=== PATIENT | male | born 1980 | race Caucasian/White ===

== ENCOUNTER 2025-01-08 08:20 | Inpatient (IN) | payer MEDICARE, OTHER ==
[2025-01-08] MEDS ORDERED: diphenhydrAMINE 50 MG/ML VIAL ONE (10:12)
[2025-01-08 10:57] LABS: #Basophils 0.12 10x3/uL (0.0-0.2); #Eosinophils Less than 0.03 10x3/uL (0.0-0.7); #Monocytes 0.86 10x3/uL (0.11-0.59); #Neutrophils 21.68 10x3/uL (1.40-6.50); %Basophils 0.5 % (0.0-1.0); %Eosinophils 0.0 % (0.0-10.0); %Lymphocytes 4.7 % (21.0-51.0); %Monocytes 3.6 % (0.0-10.0); %Neutrophils 90.7 % (42.0-75.0); Hematocrit 42.6 % (42.0-52.0); Hemoglobin 13.8 g/dL (14.0-18.0); Mean Corpuscular Hemoglobin 33.7 pg (27.0-31.0); Mean Corpuscular Volume 103.9 fL (78.0-98.0); Platelet Count 276 10x3/uL (130-400); Red Blood Cell (RBC) Count 4.10 mill/uL (4.70-6.10); White Blood Cell (WBC) Count 23.89 10x3/uL (4.8-10.8)
[2025-01-08] MEDS ORDERED: Iopamidol-370 76% 500 ML MDV (1 ML CHARGE) ONE (11:04)
[2025-01-08 11:31] LABS: ALT (SGPT) 24 U/L (Less than 45); AST (SGOT) 40 U/L (11-34); Albumin 4.3 g/dL (3.1-4.5); Alkaline Phosphatase 68 U/L (40-110); Anion Gap 25 mmol/L (10-20); BUN (Urea Nitrogen) 25 mg/dL (8.9-20.6); Bilirubin, Total 0.5 mg/dL (0.3-1.2); CK (CPK) 540 U/L (30-200); Calc. Creatinine Clearance 0 mL/min (70-130); Calcium 9.5 mg/dL (7.8-10.44); Carbon Dioxide 15 mmol/L (22-29); Chloride 102 mmol/L (98-107); Globulin 4.2 g/dL (2.4-3.5); Glucose 154 mg/dL (70-105); Lipase 26 U/L (8-78); Magnesium 1.9 mg/dL (1.6-2.6); Potassium 4.2 mmol/L (3.5-5.1); Sodium 138 mmol/L (136-145)
[2025-01-08] MEDS ORDERED: cefTRIAXone (ROCEPHIN) 2 GM VIAL ONE (12:14)
[2025-01-08 16:45] VITALS: BMI 26.1
[2025-01-08] MEDS ORDERED: Electrolyte Replacement Protocol 1 EACH FS SCH (17:11)
[2025-01-08] MEDS ORDERED: Ondansetron PF 4 MG/2 ML Vial IVP PRN (17:11)
[2025-01-08] MEDS ORDERED: Senokot S 8.6-50 MG TAB PO PRN (17:11)
[2025-01-08] MEDS ORDERED: Bisacodyl 10 MG SUPP PR PRN (17:11)
[2025-01-08] MEDS ORDERED: Glucagon 1 MG/ML KIT IM PRN (17:35)
[2025-01-08] MEDS ORDERED: Dextrose 50% Abboject 50 ML SYRINGE SLOW IVP PRN (17:35)
[2025-01-08] MEDS: Acetaminophen 325 MG TAB PO SCH (19:04)
[2025-01-08 21:06] LABS: ALT (SGPT) 25 U/L (Less than 45); AST (SGOT) 50 U/L (11-34); Albumin 3.7 g/dL (3.1-4.5); Alkaline Phosphatase 56 U/L (40-110); Anion Gap 14 mmol/L (10-20); BUN (Urea Nitrogen) 14 mg/dL (8.9-20.6); Bilirubin, Total 0.3 mg/dL (0.3-1.2); Calc. Creatinine Clearance 78 mL/min (70-130); Calcium 8.5 mg/dL (7.8-10.44); Carbon Dioxide 22 mmol/L (22-29); Chloride 107 mmol/L (98-107); Globulin 3.3 g/dL (2.4-3.5); Glucose 136 mg/dL (70-105); Magnesium 1.8 mg/dL (1.6-2.6); Potassium 3.7 mmol/L (3.5-5.1); Sodium 139 mmol/L (136-145)
[2025-01-09 05:52] LABS: #Basophils 0.07 10x3/uL (0.0-0.2); #Eosinophils Less than 0.03 10x3/uL (0.0-0.7); #Monocytes 1.07 10x3/uL (0.11-0.59); #Neutrophils 13.50 10x3/uL (1.40-6.50); %Basophils 0.4 % (0.0-1.0); %Eosinophils 0.1 % (0.0-10.0); %Lymphocytes 6.9 % (21.0-51.0); %Monocytes 6.8 % (0.0-10.0); %Neutrophils 85.4 % (42.0-75.0); Hematocrit 39.6 % (42.0-52.0); Hemoglobin 13.3 g/dL (14.0-18.0); Mean Corpuscular Hemoglobin 33.8 pg (27.0-31.0); Mean Corpuscular Volume 100.5 fL (78.0-98.0); Platelet Count 254 10x3/uL (130-400); Red Blood Cell (RBC) Count 3.94 mill/uL (4.70-6.10); White Blood Cell (WBC) Count 15.80 10x3/uL (4.8-10.8)
[2025-01-09 06:16] LABS: ALT (SGPT) 25 U/L (Less than 45); AST (SGOT) 48 U/L (11-34); Albumin 3.4 g/dL (3.1-4.5); Alkaline Phosphatase 54 U/L (40-110); Anion Gap 16 mmol/L (10-20); BUN (Urea Nitrogen) 12 mg/dL (8.9-20.6); Bilirubin, Total 0.4 mg/dL (0.3-1.2); Calc. Creatinine Clearance 92 mL/min (70-130); Calcium 8.3 mg/dL (7.8-10.44); Carbon Dioxide 22 mmol/L (22-29); Chloride 108 mmol/L (98-107); Globulin 3.4 g/dL (2.4-3.5); Glucose 121 mg/dL (70-105); Potassium 3.2 mmol/L (3.5-5.1); Sodium 143 mmol/L (136-145)
[2025-01-09 07:08] LABS: Bacteria/HPF None Seen HPF (None Seen); Glucose, Urine (Dipstick) Normal (Negative); Leukocyte Negative Leu/uL (Negative); Protein, Urine (Dipstick) Negative (Neg-Trace); RBC/HPF 0-3 HPF (0-3); Specific Gravity, Urine 1.036 (1.002-1.036); WBC/HPF 0-3 HPF (0-3)
[2025-01-09] MEDS: Potassium Chloride 20 MEQ in Premix 1 BAG IVPB SCH (07:52)
[2025-01-09] MEDS: Folic Acid 5 MG/ML MDV SC SCH (07:53)
[2025-01-09] MEDS: Enoxaparin 40 MG (0.4 mL) SYRINGE SC SCH (07:53)
[2025-01-09] MEDS: cefTRIAXone\\ROCEPHIN 1 GM in Sodium Chloride 0.9% 100 ML IVPB SCH (07:53)
[2025-01-09] MEDS: Multivitamin W/ Minerals 1 TAB PO SCH (07:54)
[2025-01-09] MEDS: Thiamine HCl 500 MG, Admixture Fee 1 EACH in Sodium Chloride 0.9% 100 ML IVPB SCH (10:29)
[2025-01-09] MEDS: cefTRIAXone\\ROCEPHIN 2 GM in Sodium Chloride 0.9% 100 ML IVPB SCH (10:31)
[2025-01-09 15:53] VITALS: BMI 26.1
[2025-01-10 06:13] LABS: #Basophils 0.09 10x3/uL (0.0-0.2); #Eosinophils 0.24 10x3/uL (0.0-0.7); #Monocytes 0.76 10x3/uL (0.11-0.59); #Neutrophils 5.02 10x3/uL (1.40-6.50); %Basophils 1.2 % (0.0-1.0); %Eosinophils 3.2 % (0.0-10.0); %Lymphocytes 18.0 % (21.0-51.0); %Monocytes 10.1 % (0.0-10.0); %Neutrophils 67.1 % (42.0-75.0); Hematocrit 38.2 % (42.0-52.0); Hemoglobin 12.4 g/dL (14.0-18.0); Mean Corpuscular Hemoglobin 33.1 pg (27.0-31.0); Mean Corpuscular Volume 101.9 fL (78.0-98.0); Platelet Count 237 10x3/uL (130-400); Red Blood Cell (RBC) Count 3.75 mill/uL (4.70-6.10); White Blood Cell (WBC) Count 7.49 10x3/uL (4.8-10.8)
[2025-01-10 06:16] LABS: Anion Gap 13 mmol/L (10-20); BUN (Urea Nitrogen) 8 mg/dL (8.9-20.6); Calc. Creatinine Clearance 99 mL/min (70-130); Calcium 8.6 mg/dL (7.8-10.44); Carbon Dioxide 23 mmol/L (22-29); Chloride 108 mmol/L (98-107); Glucose 86 mg/dL (70-105); Potassium 3.2 mmol/L (3.5-5.1); Sodium 141 mmol/L (136-145)
[2025-01-10] MEDS ORDERED: Glycerin Adult Supp. (12 ct jar) PR PRN (08:09)
[2025-01-10] MEDS: Enoxaparin 30 MG (0.3 mL) SYRINGE SC SCH (08:09)
[2025-01-10 08:25] VITALS: BP 124/83; TEMP 97.6
[2025-01-10] MEDS: Amoxicillin/Potassium Clav 875 MG TAB PO SCH (08:41)
[2025-01-10] MEDS: Pantoprazole 40 MG DR.TAB PO SCH (08:41)
[2025-01-11] MEDS ORDERED: Folic Acid 0.4 MG in Admixture Fee 1 EACH SC SCH (09:00)
== END 2025-01-10 12:40 | disposition home or self-care (01) | DRG 641 ==
LOC: ERS 08:20 → T4-A 13:29
PROVIDERS: ADMIT Family Medicine; ATTEND Hospitalist
DX: E86.0 Dehydration (principal); N17.9 Acute kidney failure, unspecified; F84.0 Autistic disorder; G93.40 Encephalopathy, unspecified; F05 Delirium due to known physiological condition; E87.21 Acute metabolic acidosis; Q90.9 Down syndrome, unspecified; E03.9 Hypothyroidism, unspecified; K21.9 Gastro-esophageal reflux disease without esophagitis; K59.00 Constipation, unspecified
CPT/HCPCS: 36415; 36416; 70491; 71045; 80048; 80053; 81001; 82010; 82550; 83605; 83690; 83735; 84100; 84439; 84443; 85025; 87040; 87428; 93005; 96365; 96372; 96375; J0696; J1200; J1630; J2060; J2250; J3411; J3480; J7042; Q9967